=== PATIENT | female | born 1955 | race Caucasian/White ===

== ENCOUNTER → 2019-12-15 | Outpatient (CLI) | payer OTHER ==
--- NOTE | 2019-12-16 12:10 | KCIC ---
Bilateral digital screening mammograms with 3-D tomosynthesis: Reason for examination: Routine screening. Comparison is made to previous studies dated 01/09/2018, 12/10/2017 and 08/09/2016. Bilateral mammograms in CC and oblique projections were obtained with 2-D imaging and 3-D tomosynthesis imaging on a Siemens Inspiration unit and reviewed on the workstation. Interpretation was made with the benefit of CAD. The skin and nipples show no abnormalities. No abnormal axillary lymph nodes are seen. The breast parenchyma is heterogeneously dense. (Breast density: Category C.) There appears to be a nodular density in the 10:00 position of the right breast 4 cm from the nipple measuring 1.5 cm in size. Recommend further evaluation with ultrasound. There are no other new dominant masses, suspicious calcifications or architectural distortion. Biopsy clips remain present bilaterally. Impression: 1.5 cm nodule in the 10:00 position of the right breast 4 cm from the nipple. Recommend further evaluation with ultrasound. Your patient's mammogram demonstrates that she has dense breast tissue (breast density category C or D), which could hide abnormalities, and if she has other risk factors for breast cancer that have been identified, she might benefit from supplemental screening tests that may be suggested by you as her ordering physician. Dense breast tissue, in and of itself, is a relatively common condition. Therefore, this information is not provided to cause undue concern, but rather to raise your awareness and to promote discussion with your patient regarding the presence of other risk factors, in addition to dense breast tissue. Your patient's mammography results will be sent to her. BI-RAD Category 0: Incomplete. Needs additional imaging evaluation. "Our facility is accredited by the [employer] Mammography [employer]." This patient's information has been entered into a reminder system for the patient to be notified with the results of her examination and a target date for the next mammogram. Electronically signed by: Marcie Goff MD (12/16/2019 12:07 PM) [email or web address]
== END ==
LOC: KCIC MAMMO 13:18
PROVIDERS: ATTEND Family Medicine
DX: Z12.31 Encounter for screening mammogram for malignant neoplasm of breast (principal)
CPT/HCPCS: 77063; 77067

== ENCOUNTER → 2020-01-05 | Outpatient (CLI) | payer OTHER ==
--- NOTE | 2020-01-05 17:14 | KCIC ---
Right breast ultrasound: Reason for examination: Nodule on mammographic screening. Comparison is made to mammographic exam dated 12/15/2019. Ultrasound examination was performed in the area of mammographic concern and axilla. At the 10:00 position 4 cm from the nipple, there is dense fibroglandular tissue but no discrete cystic or solid nodules. No abnormal appearing lymph nodes are seen in the right axilla. IMPRESSION: Focal dense fibroglandular tissue at the 10:00 position. No suspicious abnormality seen in the right breast. Recommend routine mammographic follow-up. BI-RADS Category 2: Benign. "Our facility is accredited by the [employer]ammography [employer]." This patient's information has been entered into a reminder system for the patient to be notified with the results of her examination and a target date for the next mammogram. Electronically signed by: Marcie Goff MD (01/05/2020 5:12 PM) [email or web address]
== END ==
LOC: KCIC US 12:50
PROVIDERS: ATTEND Family Medicine
DX: R92.8 Other abnormal and inconclusive findings on diagnostic imaging of breast (principal)
CPT/HCPCS: 76641

== ENCOUNTER → 2020-12-14 | Outpatient (CLI) | payer OTHER ==
--- NOTE | 2020-12-14 12:25 | KCIC ---
Bilateral digital screening mammograms with 3-D tomosynthesis: Reason for examination: Routine screening. Comparison is made to previous studies dated back to 08/09/2016. Bilateral mammograms in CC and oblique projections were obtained with 2-D imaging and 3-D tomosynthes is imaging on a Siemens Inspiration unit and reviewed on the workstation. Interpretation was made wit h the benefit of CAD. The skin and nipples show no abnormalities. No abnormal axillary lymph nodes are seen. The breast par enchyma is heterogeneously dense. (Breast density: Category C.) There are patchy asymmetric densities which are stable. There are no new dominant masses, suspicious calcifications or architectural disto rtion. Biopsy clips remain present bilaterally. Impression: No evidence of malignancy. Recommend routine screening. Your patient's mammogram demonstrates that she has dense breast tissue (breast density category C or D), which could hide abnormalities, and if she has other risk factors for breast cancer that have bee n identified, she might benefit from supplemental screening tests that may be suggested by you as her ordering physician. Dense breast tissue, in and of itself, is a relatively common condition. Therefo re, this information is not provided to cause undue concern, but rather to raise your awareness and t o promote discussion with your patient regarding the presence of other risk factors, in addition to d ense breast tissue. Your patient's mammography results will be sent to her. BI-RAD Category 2: Benign. "Our facility is accredited by the [employer] Mammography Program." This patient's information has been entered into a reminder system for the patient to be notified wit h the results of her examination and a target date for the next mammogram. Electronically signed by: Marcie Goff MD (12/14/2020 12:22 PM) [facility]
== END ==
LOC: KCIC MAMMO 10:28
PROVIDERS: ATTEND Family Medicine
DX: Z12.31 Encounter for screening mammogram for malignant neoplasm of breast (principal)
CPT/HCPCS: 77063; 77067

== ENCOUNTER → 2021-02-16 | Day surgery (SDC) | payer OTHER ==
[~2021-02-16] VITALS: Ht 152.4 cm; Wt 73.0 kg
[~2021-02-16] MED LIST: IV RINGERS,LACTATED 1000ML 1,000 ML IV SCH; LIDOCAINE 2% PF 5 ML VIAL. ONE; PROPOFOL 10 MG/ML (20ML) VIAL. IV ONE
[2021-02-16 08:20] VITALS: BP 125/60
[2021-02-16 10:14] VITALS: BP 112/69
--- NOTE | 2021-02-20 18:06 | PATHOLOGY ---
[facility] Accession Number: [id number] . 01 Material submitted: . PART A: small bowel - SMALL BOWEL BIOPSY PART B: stomach - ANTRUM/BODY BIOPSY PART C: esophagus - DISTAL ESOPHAGUS BIOPSY. Modifiers: distal PART D: esophagus - MID ESOPHAGUS BIOPSY. Modifiers: mid . 01 Clinical history: . DYSPHAGIA, EGD . 02 Diagnosis: A. Small bowel biopsy: - No diagnostic abnormalities. . B. Gastric biopsy, gastric antrum/body: - Chronic gastritis, mild. . C. Esophageal biopsy, distal esophagus: - Reflux changes. . D. Esophageal biopsy, middle esophagus: - No diagnostic abnormalities. (JPM:pit; 02/20/2021) [facility] 02/20/2021 1430 Local . 02 Comment: Sections of the small bowel biopsy reveal segments of duodenal and small intestine mucosa. Where best oriented, the mucosal villi show no sprue-like changes or significant inflammatory changes. . Sections of the gastric biopsy reveal segments of gastric antral and gastric body mucosa showing congestion and mild chronic inflammation. A properly controlled immunoperoxidase stain for Helicobacter is negative for Helicobacter organisms. . Sections of the distal esophageal biopsy reveal segments of tangentially oriented hyperplastic squamous esophageal mucosa, in addition to gastric mucosa showing mild chronic inflammation. The findings are consistent with reflux esophagitis. There is no evidence of Cuello's change, dysplasia, or malignancy. . Sections of the middle esophageal biopsy reveal segments of squamous esophageal mucosa showing no diagnostic abnormalities. (JPM:pit; 02/20/2021) . Special stain performed: Immunoperoxidase stain for Helicobacter on B1. . 02 Electronically signed: . Mauricio Rodríguez MD, Pathologist NPI- [id number] . 01 Gross description: . A. Received in formalin labeled "Debbie Bourne, small bowel biopsy "are multiple fragments of babb-brown soft tissue measuring in aggregate 1.2 x 0.4 x 0.3 cm. The specimen is submitted entirely in A1. . B. Received in formalin labeled "Debbie Bourne antrum/body biopsy" are multiple fragments of babb-brown soft tissue measuring in aggregate 1.6 x 0.3 x 0.3 cm. The specimen is submitted entirely in B1. . C. Received in formalin labeled "Debbie Bourne distal esophagus biopsy" are multiple fragments of babb-brown soft tissue measuring in aggregate 1.4 x 0.3 x 0.2 cm. The specimen is submitted entirely in C1. . D. Received in formalin labeled "Debbie Bourne mid esophagus biopsy" are multiple fragments of babb-brown soft tissue measuring in aggregate 0.7 x 0.5 x 0.2 cm. The specimen is submitted entirely in D1. ([facility]; 02/17/2021) [facility] 02/17/2021 0916 Local . 02 Pathologist provided ICD-10: K29.50, K21.00, R13.10 . 02 CPT . 589888, 454273, 809046, 268503, [id number] Specimen Comment: A courtesy copy of this report has been sent to [phone], [phone] Specimen Comment: [id number] Specimen Comment: Report sent to / DR BHATIA Performed at: 01 [facility] [address] [facility] [address], [place] [id number] MD Enrique Rodríguez MD Phone: [phone] Performed at: 02 [facility] [address] [place], [place] [id number] MD Mauricio Rodríguez MD Phone: [phone]
== END | disposition home or self-care (01) ==
LOC: ENDOS 07:59
PROVIDERS: ATTEND Internal Medicine Gastroenterology
DX: R13.10 Dysphagia, unspecified (principal); K21.00 Gastro-esophageal reflux disease with esophagitis, without bleeding; K29.50 Unspecified chronic gastritis without bleeding; K31.89 Other diseases of stomach and duodenum; Z79.899 Other long term (current) drug therapy; Z88.0 Allergy status to penicillin; Z88.8 Allergy status to other drugs, medicaments and biological substances; Z88.5 Allergy status to narcotic agent; Z90.710 Acquired absence of both cervix and uterus; Z98.51 Tubal ligation status; Z98.890 Other specified postprocedural states
CPT/HCPCS: 43239; 43450; J2704; 88305; 88342